=== PATIENT | female | born 1990 ===

== ENCOUNTER → 2023-09-14 14:50 | Outpatient (POV) | payer OTHER, SELFPAY ==
[2023-09-14 15:46] VITALS: BP 128/71; PULSE 70; RESP 18; O2SAT 97; BMI 23.3
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
== END ==
PROVIDERS: Visit Provider Nurse Practitioner Family
DX: M54.12 Radiculopathy, cervical region (principal); R51.9 Headache, unspecified
CPT/HCPCS: 99202; G0463